=== PATIENT | male | born 1965 | race African-American/Black ===

== ENCOUNTER 2019-10-26 17:53 | Emergency (ER) | payer SELFPAY ==
[~2019-10-26] VITALS: Ht 177.8 cm; Wt 71.0 kg
[2019-10-27 08:30] VITALS: BP 130/94
== END 2019-10-27 09:00 | disposition home or self-care (01) ==
LOC: ER 17:53
DX: R51 Headache (principal); I10 Essential (primary) hypertension
CPT/HCPCS: 73552; 99284